=== PATIENT | female | born 1965 | race Caucasian/White ===

== ENCOUNTER 2018-10-06 17:25 | Inpatient (IN) | payer OTHER ==
[~2018-10-06] VITALS: Ht 160 cm; Wt 74.8 kg
[2018-10-06 17:51] VITALS: BP 142/79
[2018-10-06 19:31] LABS: HEMATOCRIT 38.7 % (37.0-47.0); HEMOGLOBIN 13.2 gm/dL (12.0-15.0); MCH 29.7 pg (26.0-34.0); MCHC 34.1 g/dL (28.0-37.0); MCV 87.1 fL (80.0-100.0); MPV 7.6 fl. (7.2-11.1); NUCLEATED RBCS 0 /100WBC; PLATELET COUNT* 366 thou/uL (150-400); RBC 4.45 mil/uL (4.20-5.00); RDW-CV 14.4 % (10.5-14.5); WBC 16.1 thou/uL (4.0-11.0)
[2018-10-06 19:42] LABS: ANION GAP 9 mmol/L (7-16); BUN 8 mg/dL (7-18); CALCIUM 8.5 mg/dL (8.5-10.1); CHLORIDE 94 mmol/L (98-107); CO2 28 mmol/L (21-32); CREATININE 0.7 mg/dL (0.6-1.3); GLUCOSE 112 mg/dL (70-99); SODIUM 131 mmol/L (136-145)
[2018-10-06 19:43] LABS: POTASSIUM 2.9 mmol/L (3.5-5.1)
[2018-10-06 19:53] LABS: ALBUMIN 2.3 g/dL (3.4-5.0); ALKALINE PHOSPHATASE 260 U/L (46-116); NT-PRO BRAIN NAT PEPTIDE 410 pg/mL (<300); SGOT 32 U/L (15-37); SGPT 48 U/L (30-65); TOTAL BILIRUBIN 0.4 mg/dL (<0.1-1.0); TOTAL PROTEIN 7.3 g/dL (6.4-8.2); TROPONIN-I LEVEL <0.06 ng/mL (<0.06)
[2018-10-06 20:06] LABS: ABSOLUTE LYMPHOCYTES 1.4 thou/uL (0.8-5.3); ABSOLUTE NEUTROPHILS 13.7 thou/uL (1.6-8.1); PLATELET ESTIMATE ADEQUATE
[2018-10-06 21:45] VITALS: BP 112/68
[2018-10-06 21:58] LABS: URINE BILIRUBIN NEGATIVE (Negative); URINE BLOOD NEGATIVE (Negative); URINE CLARITY CLEAR; URINE COLOR YELLOW; URINE GLUCOSE-RANDOM NEGATIVE (Negative); URINE KETONES 1+ (Negative); URINE LEUKOCYTES-REFLEX TRACE (Negative); URINE NITRITE-REFLEX NEGATIVE (Negative); URINE PROTEIN TRACE (Negative); URINE UROBILINOGEN 0.2 E.U./dl (0.2-1.0)
[2018-10-06 22:00] VITALS: BP 110/57
[2018-10-06 22:09] LABS: SQUAMOUS 4-10 Moderate /LPF (0-3); URINE WBC-REFLEX 0-5 Rare /HPF (0-5)
[2018-10-06 22:10] LABS: BACTERIA-REFLEX None Seen /HPF (None Seen); CASTS None Seen /LPF (None Seen); CRYSTALS None Seen /LPF (None Seen); URINE RBC None Seen /HPF (0-2)
[2018-10-07 04:00] VITALS: BP 121/51
[2018-10-07 07:30] VITALS: BP 120/64
[2018-10-07 12:17] VITALS: BP 112/59
--- NOTE | 2018-10-07 15:39 | EKG ---
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
[2018-10-07 15:54] VITALS: BP 133/68
[2018-10-07 20:00] VITALS: BP 106/55
[2018-10-08] VITALS: BP 127/81
[2018-10-08 04:00] VITALS: BP 131/65
[2018-10-08 05:37] LABS: ABSOLUTE EOSINOPHILS 0.2 thou/uL (0.0-0.7); ABSOLUTE MONOCYTES 0.9 thou/uL (0.0-1.2); ABSOLUTE NEUTROPHILS 6.9 thou/uL (1.6-8.1); BASOPHILS 0.5 %; EOSINOPHILS 2.4 %; HEMATOCRIT 32.6 % (37.0-47.0); LYMPHOCYTES 19.6 %; MCH 29.6 pg (26.0-34.0); MCHC 33.9 g/dL (28.0-37.0); MCV 87.4 fL (80.0-100.0); MONOCYTES 9.2 %; MPV 8.1 fl. (7.2-11.1); NUCLEATED RBCS 0 /100WBC; PLATELET COUNT* 348 thou/uL (150-400); POLYS 68.3 %; RBC 3.73 mil/uL (4.20-5.00); RDW-CV 14.2 % (10.5-14.5); WBC 10.1 thou/uL (4.0-11.0)
[2018-10-08 05:46] LABS: HEMOGLOBIN 11.1 gm/dL (12.0-15.0)
[2018-10-08 06:07] LABS: CALCIUM 8.2 mg/dL (8.5-10.1); CREATININE 0.6 mg/dL (0.6-1.3)
[2018-10-08 07:05] VITALS: BP 127/76
--- NOTE | 2018-10-08 11:16 | CON ---
[address] [address] CONSULTATION Name: TATYANA CROCKETT Room: [address] IN M.R.#: [id number] Admission: 10/06/18 Attend Phys: Vida Landa MD Discharge: Date of : 67 Report #: [id number] THIS REPORT FOR: //name// CC: [facility] physician/PCP Vida Landa DATE OF SERVICE: 10/07/2018 REASON FOR CONSULTATION: Respiratory failure and pneumonia. HISTORY OF PRESENT ILLNESS: This is a pleasant 53-year-old female patient with no known chronic lung disease, although she told me she had asthma as a child. She grew out of it when she was her 14-15 years old, but she has never been on a regular inhaler. Also, a year ago, she required inhaler for 1 week after an attack of bronchitis. She felt the inhaler at that time helped. For the last couple of weeks or so, she has been having some runny nose and sore throat that actually progressed because of some headache. She was seen twice by Urgent Care, given antibiotic and steroids temporarily. However, she went to [place] late last week and she came back, she was really sick and she [place] the airport to the hospital. She told me she was running a fever up to 100.2. She was checking her temperature. She had some increased shortness of breath especially with exertion, cough is new, but she is not producing any sputum. She did think she had any wheezes. She has no sick contact. Her chest x-ray showed bilateral infiltrates. She has no chest pain. No lower extremity edema. No PNDs. No orthopnea. ALLERGIES: AMOXICILLIN, CLAVULANIC ACID and SEASONAL ALLERGIES. HOME MEDICATIONS: She is not on any regular medications other than those mentioned above. PAST MEDICAL HISTORY: Childhood asthma as mentioned above. PAST SURGICAL HISTORY: Hysterectomy. FAMILY HISTORY: Reviewed with the patient. No history of asthma. SOCIAL HISTORY: Never smoked. Does not drink alcohol excessively, does not abuse drugs. REVIEW OF SYSTEMS: GENERAL: She had history of fever as mentioned above. EYES: No visual changes. No blurring of vision. No lacrimation. No redness. HEAD AND NECK: No trauma. No headache at this point, although she had earlier during the course of the illness some headache. No hearing loss. Her sinus congestion is improving. She [place] [address] CONSULTATION Name: TATYANA CROCKETT Room: [address]#: [id number] Admission: 10/06/18 Attend Phys: Vida Landa MD Discharge: Date of : 67 Report #: [id number] CARDIOVASCULAR: No chest pain, no orthopnea, no PNDs, no palpitation, no syncope. GASTROINTESTINAL: She has no nausea, no vomiting, no change in bowel habits, no bleeding with the stool. GENITOURINARY: She has no frequency, no urgency, no blood in the urine, no hesitancy. MUSCULOSKELETAL: She has no edema, no calf tenderness, no joint pain, no deformity. ENDOCRINE: She has no diabetes, no thyroid disease. SKIN: No rashes, no itching. All systems reviewed with the patient and negative other than as mentioned above. PHYSICAL EXAMINATION: GENERAL: Lying in bed, comfortable, looks her stated age, some occasional dry cough, no sputum production. VITAL SIGNS: She is on 3 liter oxygen with O2 saturation 92%, blood pressure 120/64, breathing 20 times a minute, pulse rate of 85. She is afebrile now, but has temperature in the ER of 38.1. HEENT: Oral cavity, moist mucous membranes. Mallampati of 2-3. External ears looks normal. Nasal cavity patent passages. NECK: Full range of movement. No masses felt. Trachea central. No lymphadenopathy. . CHEST: Diminished air movement bilaterally with some rhonchi. No definite wheezes. No tenderness. HEART: S1, S2. No murmur, no gallop. ABDOMEN: Benign, soft, lax, nontender, positive bowel sounds. No masses felt. No rebound, no rigidity. EXTREMITIES: Lower extremities; no edema, no calf tenderness. MUSCULOSKELETAL: No deformities, no joint abnormalities. PSYCHIATRIC: Mood and affect appropriate. Good insight and judgment. NEUROLOGICAL: Moving 4 extremities spontaneously. No focal weakness. LYMPHATICS: No palpable lymph node. LABORATORY DATA: Her white blood cell count is 16.1, hemoglobin 13.2 and platelets of 366. Her potassium initially 2.9 and was replaced. Sodium 131, chloride 94, glucose 112. BNP slightly elevated. Her chest x-ray that was done upon hospitalization showed patchy bilateral infiltrates. IMPRESSION: 1. Acute hypoxic respiratory failure. 2. Pneumonia. 3. Suspect respiratory virus illness. 4. Pulmonary infiltrate. 5. History of asthma[place] [address] CONSULTATION Name: TATYANA CROCKETT Room: [address] IN .R.#: [id number] Admission: 10/06/18 Attend Phys: Vida Landa MD Discharge: Date of : 67 Report #: [id number] PLAN: At this point, the patient will be on supplemental oxygen. I agree with summers culture, sputum culture and sensitivity, although unable to provide samples at this point. I would continue the patient on antibiotic. I will defer decision of antibiotics to Infectious Disease specialty. She is on GI prophylaxis and I would keep her on scheduled nebulization treatment. I will give her one dose of steroids today given the history of asthma. We will need to start weaning her oxygen down, although I will follow up chest x-ray for her in the morning. Thank you for the consult. <ELECTRONICALLY SIGNED> By: Ashley Luna MD 10/08/18 1116 1156 [id number] Luna MD /nt
[2018-10-08 12:00] VITALS: BP 131/73
--- NOTE | 2018-10-08 12:37 | CON ---
[address] [address] CONSULTATION Name: TATYANA CROCKETT Room: [address] IN .R.#: [id number] Admission: 10/06/18 Attend Phys: Vida Landa MD Discharge: Date of : 67 Report #: [id number] THIS REPORT FOR: //name// CC: [facility] physician/PCP Vida Landa DATE OF SERVICE: 10/07/2018 INFECTIOUS DISEASE CONSULTATION ATTENDING PHYSICIAN: Matthew Lerner MD REASON FOR EVALUATION: Community-acquired pneumonia. HISTORY OF PRESENT ILLNESS: Chart reviewed, patient is examined. This is a 53-year-old without significant medical history. Apparently, he has been ill for the last couple of weeks, onset of what she thought was probably seasonal allergies. Continued to produce cough, which was nonproductive, progressive dyspnea over the course of several days; however, worsened over the last 2-3 days, had been traveling to [place], had come home and was found to have temperature elevation, anorexia with poor p.o. intake, was felt to be dehydrated. Imaging noted bilateral infiltrates, was found to be experiencing those oxygen saturations as well. As a result, was diagnosed with pneumonitis, admitted, placed on antimicrobial therapy with levofloxacin. ALLERGIES: TO AUGMENTIN. CURRENT MEDICATIONS: Include levofloxacin, pantoprazole, guaifenesin, enoxaparin and hydralazine. PAST MEDICAL HISTORY: Previous hysterectomy. SOCIAL HISTORY: Nonsmoker, occasional ethanol. FAMILY HISTORY: Noncontributory. REVIEW OF SYSTEMS: Does admit to some nausea as well as some diarrhea, otherwise unremarkable 10-point review of systems. PHYSICAL EXAMINATION: VITAL SIGNS: Temperature 98.7, pulse 85, respirations 16 and blood pressure 120/64 with a T-max of 100.6. GENERAL: She is alert, cooperative, mild to moderate respiratory distress. He has nasal cannula oxygen in place and was found to have some tachypnea. He is lucid, appears generally reasonably nourished. He is not encephalopathic. HEENT: Normocephalic. [place] [address] CONSULTATION Name: TATYANA CROCKETT Room: [address] IN [facility]#: [id number] Admission: 10/06/18 Attend Phys: Vida Landa MD Discharge: Date of : 67 Report #: [id number] NECK: Supple. LUNGS: Scattered coarse breath sounds bilaterally. HEART: Regular. No murmur. ABDOMEN: Soft, nontender, nondistended. EXTREMITIES: No cyanosis. GENITOURINARY: Deferred. RECTAL: Deferred. LABORATORY DATA: Lactic acid 1.1. Chest x-ray shows patchy bilateral pulmonary opacities consistent with multifocal pneumonitis. Electrolytes: Sodium 131, potassium 2.9, chloride 94, bicarbonate is 28, anion gap of 9, BUN and creatinine 8 and 0.7, alkaline phosphatase of 260. Albumin is 2.3, total protein 7.3, estimated GFR of 88. CBC: White count of 16.1, H and H 13.2 and 38.7, platelets of 366, has neutrophilia. Urinalysis; 1+ ketones, trace protein, trace leukocytes, no pyuria. Prealbumin of 13.4. Blood cultures are sterile thus far. ASSESSMENT: Community-acquired pneumonia. The patient has progressive course, agree with parenteral antimicrobial therapy. We will check urinary antigens. She is not overtly toxic at this point, does remain fairly tenuous. Continue to support with supplemental oxygen, wean as allowed. Discussed with the patient's spouse. <ELECTRONICALLY SIGNED> By: Ron Jorgensen MD 10/08/18 1237 1047 [id number] Jorgensen MD /nt
[2018-10-08 15:50] VITALS: BP 132/70
[2018-10-08 20:00] VITALS: BP 133/80
[2018-10-08 23:10] LABS: MYCOPLASMA PNEUMONIA IgG 178 U/mL (0-99); MYCOPLASMA PNEUMONIA IgM <770 U/mL (0-769)
[2018-10-09] VITALS: BP 112/61
[2018-10-09 03:50] LABS: ABSOLUTE LYMPHOCYTES 1.2 thou/uL (0.8-5.3); ABSOLUTE MONOCYTES 0.6 thou/uL (0.0-1.2); ABSOLUTE NEUTROPHILS 8.2 thou/uL (1.6-8.1); BASOPHILS 0.1 %; HEMATOCRIT 37.7 % (37.0-47.0); HEMOGLOBIN 12.6 gm/dL (12.0-15.0); LYMPHOCYTES 11.9 %; MCH 29.5 pg (26.0-34.0); MCHC 33.3 g/dL (28.0-37.0); MCV 88.6 fL (80.0-100.0); MONOCYTES 6.2 %; MPV 7.7 fl. (7.2-11.1); NUCLEATED RBCS 0 /100WBC; POLYS 81.8 %; RBC 4.26 mil/uL (4.20-5.00); RDW-CV 14.9 % (10.5-14.5)
[2018-10-09 03:55] LABS: PLATELET COUNT* 512 thou/uL (150-400)
[2018-10-09 04:00] VITALS: BP 116/76
[2018-10-09 04:02] LABS: CALCIUM 9.2 mg/dL (8.5-10.1); CREATININE 0.5 mg/dL (0.6-1.3); POTASSIUM 4.1 mmol/L (3.5-5.1)
[2018-10-09 07:00] VITALS: BP 112/68
[2018-10-09 12:29] VITALS: BP 117/67
[2018-10-09 16:25] VITALS: BP 134/80
[2018-10-09 20:00] VITALS: BP 136/81
[2018-10-10] VITALS: BP 142/75
[2018-10-10 04:00] VITALS: BP 134/73
[2018-10-10 07:30] VITALS: BP 140/83
[2018-10-10] MEDS ORDERED: PREDNISONE 10 M10 MG PO (10:26)
[2018-10-10] MEDS ORDERED: PROTONIX40 M1 PO (10:27)
[2018-10-10] MEDS ORDERED: DIFLUCAN200 MG PO (10:27)
[2018-10-10] MEDS ORDERED: VENTOLIN HFA 1818 GM INH (10:28)
[2018-10-10] MEDS ORDERED: MUCINEX600 MG PO (10:29)
[2018-10-10] MEDS ORDERED: LEVAQUIN 750 M750 MG PO (10:34)
[2018-10-10 10:35] VITALS: BP 140/83
== END 2018-10-10 11:44 | disposition home or self-care (01) | DRG 871 ==
LOC: M.ERS 17:25 → M.2W 20:26 → M.TBA-ER 20:26 → M.2W 22:00
PROVIDERS: Internal Medicine; Nurse Practitioner Family; Specialist; ADMIT Internal Medicine
DX: A41.9 Sepsis, unspecified organism (principal); J18.9 Pneumonia, unspecified organism; J96.01 Acute respiratory failure with hypoxia; E87.1 Hypo-osmolality and hyponatremia; J45.909 Unspecified asthma, uncomplicated; E87.6 Hypokalemia; Z90.710 Acquired absence of both cervix and uterus; Z88.1 Allergy status to other antibiotic agents; Z88.8 Allergy status to other drugs, medicaments and biological substances; Z79.899 Other long term (current) drug therapy